=== PATIENT | female | born 1995 | race Caucasian/White ===

== ENCOUNTER 2020-05-04 12:58 | Emergency (ER) | payer MEDICAID, SELFPAY ==
[2020-05-04 13:30] VITALS: BP 148/99; PULSE 86; RESP 16; TEMP 36.4; O2SAT 97; BMI 22.8
--- NOTE | 2020-05-04 13:33 | ED_ITS ---
HPI - Head Injury General Chief complaint: Head Injury Stated complaint: head injury Time Seen by Provider: 05/04/20 13:33 Source: patient Mode of arrival: ambulatory Limitations: no limitations History of Present Illness HPI Narrative: States she fell several weeks ago at home trip and fall fell backwards hit her head and has had a tender area on the occipital area of her head since and this is making her very anxious and she is having headaches but has history of chronic migraines and for his related. States the fall occurred due to a slip and fall there was no prodromal symptoms. No syncope. No chest p ain or shortness of breath. No upper back /torso /neck pain. MD Complaint: head injury Onset (ago): day(s) Mechanism of Injury: fall Place: home Loss of Consciousness: no Location of injury: occipital Severity: mild Radiation: none Other Injuries: none Associated symptoms: denies other symptoms Related Data Allergies Allergy/AdvReac Type Severity Reaction Status Date / Time No Known Allergies Allergy Verified 05/04/20 13:33 Review of Systems Review of Systems: Constitutional: No Weight loss, No Fever, No Chills, No Night Sweats, No Fatigue, No Malaise ENT/Mouth: No Hearing loss, No Ear Pain, No Nasal Congestion, No Sinus Pain, No Hoarseness, No sore throat, No Rhinorrhea, No Swallowing Difficulty Eyes: No Eye Pain, No Swelling, No Redness, No Foreign Body, No Discharge, No Vision Changes Cardiovascular: No Chest Pain, No SOB, No Dyspnea on Exertion, No Orthopnea, No Edema, No Palpitations Respiratory: No Cough, No Sputum, No Wheezing, No Smoke Exposure, No Dyspnea Gastrointestinal: No Nausea, No Vomiting, No Diarrhea, No Constipation, No abdominal Pain, No Hematochezia, No Melena Genitourinary: no irregular bleeding, No Dysuria, No Urinary Frequency, No Hematuria, No Urinary Incontinence, No Urgency, No Flank Pain, No Urinary Flow Changes, No Hesitancy Musculoskeletal: No joint pain, No Myalgias, No Joint Swelling Skin: No Skin Lesions, No rash Neuro: No Weakness, No Numbness, No Paresthesias, No Loss of Consciousness, No Dizziness, No Headache Psych: No Anxiety/Panic, No Depression, No SI/HI/AH/VH, No Social Issues Heme/Lymph: No Bruising, No Bleeding,No Lymphadenopathy Endocrine: No Polyuria, No Polydipsia, No Temperature Intolerance Yes all other systems are reviewed and are negative [facility] Social History Social History (System 04/27/20 @ 12:22 by Samantha Elliott) Advance Directives: No Advance Directives Information Provided: No Physical Exam Vital Signs: Vital Signs: Vital Signs Temp Pulse Resp BP Pulse Ox 05/04/20 13:30 97.6 F 86 16 148/99 H 97 Body Mass Index 22.8 Reviewed MDM - Head Injury MDM Narrative Medical decision making narrative: AP consistent with contusion type injury to the scalp less likely skull fracture/intracranial process. [place] head CT score negative. Patient understands risk and benefits of having imaging. At this point I do not feel that she needs head CT given that the injury occurred almost 3 weeks ago and stable examination. She is requesting / demanding that she have a head CT. Risk and benefits of radiation understood. Head CT was subsequently done without acute pathology. 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 Overall nontoxic appearing. Stable for discharge. Differential Diagnosis Differential diagnosis: Likely concussion without loss of consciousness and closed head injury; Unlikely epidural hematoma, subarachnoid hematoma, postconcussion syndrome, subdural hematoma and concussion with loss of consciousness Medical Records Attestation: I reviewed the patient's medical records. Imaging Data CT scan - head: Attestation: I personally reviewed and interpreted this imaging study as follows: Radiologist's impression: [address] [address] [address] Scan Report Signed Patient: Colby Miranda#: [id number] : 1995Acct:[id number] Age/Sex: 24 / FADM Date: 05/04/20 Loc: HO.ED Attending Dr: Ordering Physician: Reg Macias NP Date of Service: 05/04/20 Procedure(s): CT head/brain wo con Accession Number(s): [id number] cc: Reg Macias NP~ EXAMINATION: CT HEAD WITHOUT CONTRAST CLINICAL INFORMATION: Status post fall COMPARISON: None TECHNIQUE: Contiguous axial imaging was performed from the skull base to vertex without intravenous administration of contrast. This CT examination was performed using dose optimization techniques as appropriate, variously including the following: *Automated exposure control *Adjustment of mA and/or kV according to patient size (this includes techniques or standardized protocols for targeted exams where dose is matched to indication/reason for exam; i.e. extremities or head) *Use of iterative reconstruction technique DLP: 558 mGy-cm FINDINGS: There is no evidence of acute intracranial hemorrhage or territorial infarction. No abnormal mass effect or midline shift is seen. [place] to white matter differentiation is well preserved. No extra-axial fluid collections are identified. The ventricles are normal in size. There is no abnormal attenuation within the brain parenchyma. The osseous structures and soft tissues are normal. There is mild right maxillary sinus mucoperiosteal thickening. Rest of the paranasal sinuses and mastoid air cells are well-aerated. CT/CT head/brain wo con IMPRESSION: No acute intracranial process seen. Dictated By:PABLITO WEBB MD Signed By:<Electronically signed by PABLITO WEBB MD in OV>05/04/20 1352 DD/ 1333 TD/TT: Identity Management [place] [facility] [place] Discharge Clinical Impression: Closed head injury Qualifiers: Encounter type: initial encounter Qualified Code(s): S09.90XA - Unspecified injury of head, initial encounter Contusion of scalp Qualifiers: Encounter type: initial encounter Qualified Code(s): S00.03XA - Contusion of scalp, initial encounter Patient Disposition: Home, Self-Care Instructions: Scalp Contusion in Adults (ED) Referrals: Physician,None [Primary Care Provider] - 1 week ( your primary care doctor) Interventions: ED Discharge Assessment Last Done: 05/04/20 14:04 Discharge Date/Time: 05/04/20 14:04
== END 2020-05-04 14:04 | disposition home or self-care (01) ==
PROVIDERS: Emergency Provider Emergency Medicine
DX: S09.90XA Unspecified injury of head, initial encounter (principal); S00.03XA Contusion of scalp, initial encounter; G44.309 Post-traumatic headache, unspecified, not intractable; W01.10XA Fall on same level from slipping, tripping and stumbling with subsequent striking against unspecified object, initial encounter; Y93.9 Activity, unspecified; Y92.009 Unspecified place in unspecified non-institutional (private) residence as the place of occurrence of the external cause
CPT/HCPCS: 70450; 99282; 99284

== ENCOUNTER 2022-02-16 21:22 | Emergency (ER) | payer OTHER, SELFPAY ==
[2022-02-16 21:27] VITALS: BP 141/96; PULSE 110; RESP 18; TEMP 37.1; O2SAT 97; BMI 21.9
[2022-02-16 22:07] VITALS: BP 143/99; PULSE 116; TEMP 36.6; O2SAT 98
--- NOTE | 2022-02-16 22:50 | ED.FEMALEGU ---
HPI - Female Genitourinary General Chief complaint: Vaginal Bleeding Stated complaint: ? miscarriage; vaginal bleeding Time Seen by Provider: 02/16/22 21:50 Source: patient and other ( significant other, Jose) Mode of arrival: ambulatory Limitations: no limitations History of Present Illness HPI Narrative: 26-year-old female who presents emergency department for evaluation of vaginal bleeding and possible . the patient has a Nexplanon implant for control. She states that her menstrual periods are sometimes irregular. She believes that her last menstrual period was 01/11/2022 and lasted approximately 2 weeks. She states that noted vaginal spotting approximately 5 days prior and she states that sometime she has small clots that look like tissue. She did a home test and was negative. She states that she feels as if she has a gas bubble and as if something is moving in her pelvic area and she is concerned that she is . She denies having abdominal pain, she states that she has mild periods with no pelvic pain. She is sexually active she has not noticed a vaginal discharge. Patient states that her vaginal area also appears abnormal to her, she states that it appears more red, she did not notice any vaginal lesions. Patient also states that over the past 2-3 days she has had a rash on her chest and abdomen as well as her back. She states that the rash is not painful but it is pruritic. She also complains swelling of her left middle finger around the nail. She has had this for approximately 4-5 days and she states that it is painful of specially if he pushes on the swollen part. MD elicited complaint: vaginal bleeding Onset (ago): day(s) (5) Location of symptoms: vaginal Consistency: other ( She describes the bleeding as spotting) Vaginal discharge: none Vaginal bleeding: scant Exacerbating factors: none Relieving factors: none Associated symptoms: rash Treatment prior to arrival: none Sexual activity: Yes Patient : No Possible : unsure if and at home test negative Date of Last Menstrual Period: 01/11/22 Related Data : 1 Para: 0 Previous Rx's Medication Instructions Recorded cephalexin 500 mg capsule 500 mg PO QID 5 days #20 caps 02/17/22 Allergies Allergy/AdvReac Type Severity Reaction Status Date / Time No Known Allergies Allergy Verified 05/04/20 13:33 Review of Systems Review of Systems: Yes all other systems are reviewed and are negative PMFSH Past Medical History [facility] Narrative: past medical history: None. Past surgical history: None. Social history: She smokes 1 pack of cigarettes per day times 10 years. She denies alcohol use. She denies drug use. : 1 Para: 0 Date of Last Menstrual Period: 01/11/22 Social History Social History Advance Directives: No Advance Directives Information Provided: No Patient : No Physical Exam Vital Signs: Vital Signs: Last Vital Signs Temp 97.8 F 02/16/22 22:07 Pulse 116 H 02/16/22 22:07 Resp 18 02/16/22 21:27 BP 143/99 H 02/16/22 22:07 Pulse Ox 98 02/16/22 22:07 O2 Del Method 02/16/22 22:07 BMI result Body Mass Index 21.9 Const: General: cooperative and no acute distress Orientation/consciousness: oriented to person and oriented to place Limitations: no limitations HEENT: Head: Yes normal to inspection, Yes normocephalic and Yes atraumatic Ears: external ears normal General nose exam: Normal external nose present Face and sinus: Yes normal facial exam Mouth: Normal oral and palatal mucosa present Throat: Yes posterior oropharynx normal Eyes: General: appearance normal, both eyes and all related structures Pupils: Equal, round and reactive pupils present Neck: Neck: Yes normal visual inspection, Yes no lymphadenopathy, Yes trachea midline and Yes supple Chest: Chest palpation & inspection: normal inspection of the chest and normal palpation of entire chest wall Resp: Effort & Inspection: normal respiratory effort and able to speak in complete sentences Auscultation: clear to auscultation bilaterally Cardio: Rate: regular rate Rhythm: regular rhythm Heart sounds: S1 normal heart sound present, S2 normal heart sound present and no murmurs GI: Inspection: Yes normal to inspection Palpation (GI): Soft to palpation, nontender and no guarding Auscultation: normal bowel sounds : General: Yes no CVA tenderness External Female Exam: normal external appearance Speculum Exam - Vagina: normal appearance of the vagina Back/Spine/Pelvis: Back: no CVA tenderness Skin: Other: Multiple small, vesicular and erythematous lesions noted on her chest and abdomen, there are few on her back as well, there are no lesions on her hands or feet Neuro: General: oriented to person and oriented to place Cranial nerves: Yes CN's II-XII intact bilaterally and Yes Equal, round and reactive pupils present Cognition (Neuro): normal cognition Motor exam (neuro): 5/5 motor strength present throughout Extrem: Other: patient has a small paronychial abscess to her left middle finger, this area is tender to palpation. Psych: Appearance: grossly normal Speech and movement: Normal speech and movement present Affect: normal affect Attitude: cooperative Thought process: Normal thought process present Thought content: Normal thought content present Course Course Course Narrative: 26-year-old female who presented to the emergency department for evaluation of vaginal bleeding x5 days with no abdominal pain, patient is concerned that she may be but had a negative home test. She was also concerned that her external vaginal area. Different and on my examination I do not see any lesions or any significant erythema on the external vaginal exam. The patient's last menstrual period was 01/11/2022 And she had vaginal bleeding for approximately 2 weeks suggesting that she would only be 5 weeks . Therefore I ordered a quantitative beta HCG, CBC and CMP. Will also obtain a urine sample on the patient. The patient has a rash which I believe is consistent with a viral infection. She also has a early left middle finger paronychial abscess. I did discuss incision and drainage as a possible treatment but the patient would rather try antibiotics and antibiotics and heat. 0009: The patient's quantitative beta hCG was below detectable limits, the rest for blood work was unremarkable. At this time, I think the patient's bleeding is secondary to her menses I did discuss this with her. The patient has a viral rash that does not need treatment. The patient will be started on Keflex 500 mg 3 times a day for 5 days for her paronychial abscess. She is advised to soak her finger for 15-20 minutes 4 to 6 times a day in warm to hot water. MDM - Female Genitourinary Lab Data Result diagrams: 02/16/22 23:11 02/16/22 23:11 Labs: Lab Results 02/16/22 02/16/22 02/16/22 Range/Units 23:11 23:11 23:11 WBC 11.7 H (4.8-10.8) X10*3/uL RBC 4.36 (4.20-5.50) X10*6/uL Hgb 12.5 (12.0-16.0) g/dl Hct 37.1 (37.0-47.0) % MCV 85.1 (80.0-98.0) fL MCH 28.7 (27.0-33.0) pg MCHC 33.7 (31.0-35.0) g/dl RDW 12.1 (11.0-16.0) % Plt Count 253 (160-400) X10*3/uL MPV 10.2 (9.4-12.3) fL Immature Gran % (Auto) 0.3 (0.0-0.4) % Neut % (Auto) 61.6 (45-73) % Lymph % (Auto) 21.6 (20-40) % [place] % (Auto) 13.4 H (2-11) % Eos % (Auto) 2.7 (0-4) % Baso % (Auto) 0.4 (0-2) % Lymph # (Auto) 2.5 (1.2-4.9) X10*3/uL [place] # (Auto) 1.6 H (0.1-1.2) X10*3/uL Eos # (Auto) 0.3 (0.0-0.4) X10*3/uL Baso # (Auto) 0.1 (0.0-0.2) X10*3/uL Abs Immat Gran (auto) 0.04 H (0.00-0.03) X10*3/uL Absolute Neuts (auto) 7.2 (2.0-8.3) x10*3/uL Absolute Nucleated RBC 0.000 (0.0-0.012) X10*3/uL Nucleated RBC % (auto) 0.0 (0.0-0.2) /100WBC Smear Tech's Comments VERIFIED Sodium 141 (135-145) mmol/L Potassium 3.6 (3.3-5.1) mmol/L Chloride 103 (96-108) mmol/L Carbon Dioxide 28 (22-29) mmol/L Anion Gap 14 (12-20) BUN 15 (9-16) mg/dL Creatinine 0.81 (0.5-1.4) mg/dL Estim Creat Clear Calc 83.2 Estimated GFR > 60 Random Glucose 68 (60-115) mg/dL Calcium 9.8 (8.4-10.2) mg/dL Total Bilirubin 0.7 (0.0-1.0) mg/dL AST 26 (5-31) U/L ALT 18 (0-31) U/L Alkaline Phosphatase 91 (39-117) U/L Total Protein 8.0 (6.5-8.0) g/dL Albumin 4.6 (3.5-5.0) g/dL Beta HCG, Quant < 2 mIU/mL Discharge Plan Discharge Clinical Impression: Vaginal bleeding, Acute paronychia of finger of left hand Patient Disposition: Home, Self-Care Instructions: Paronychia (ED) Additional Instructions: Your test was negative. Your blood work was otherwise unremarkable-you had a complete blood count and comprehensive metabolic panel. You have in his infection of your around the nail of your left middle finger. This is called a paronychial abscess. Soak your finger in warm water for 15 minutes 4 to 6 times a day for the next 2 days, this will cause the infection to improve or it may cause the infection to pop and drain. Take Keflex (cephalexin) 500 mg pills, 1 pill 3 times a day for 5 days. Take ibuprofen 200 mg pills, 3 pills every 6 hours as needed for pain. Take Tylenol (acetaminophen) 500 mg pills, 2 pills every 4 to 6 hours as needed for pain. Follow-up with your doctor in 2 days. Please return to the emergency department if your symptoms get worse or if you develop any symptoms that are concerning to you. Prescriptions: New cephalexin 500 mg capsule 500 mg PO QID 5 Days Qty: 20 0RF
[2022-02-16] MEDS: cephALEXin 500 MG CAPSULE PO (23:03)
[2022-02-16 23:17] LABS: Basophils Absolute Auto 0.1 X10*3/uL (0.0-0.2); Basophils Percent Auto 0.4 % (0-2); Eosinophils Absolute Auto 0.3 X10*3/uL (0.0-0.4); Eosinophils Percent Auto 2.7 % (0-4); Hematocrit 37.1 % (37.0-47.0); Hemoglobin 12.5 g/dl (12.0-16.0); Imm Gran Abs Auto 0.04 X10*3/uL (0.00-0.03); Imm Gran Pct Auto 0.3 % (0.0-0.4); Lymphocytes Absolute Auto 2.5 X10*3/uL (1.2-4.9); Lymphocytes Percent Auto 21.6 % (20-40); MANUAL DIFF FLAG SCAN; Mean Corpuscular HGB Conc 33.7 g/dl (31.0-35.0); Mean Corpuscular Hemoglobin 28.7 pg (27.0-33.0); Mean Corpuscular Volume 85.1 fL (80.0-98.0); Mean Platelet Volume 10.2 fL (9.4-12.3); Monocytes Absolute Auto 1.6 X10*3/uL (0.1-1.2); Monocytes Percent Auto 13.4 % (2-11); Neutrophils Absolute Auto 7.2 x10*3/uL (2.0-8.3); Neutrophils Percent Auto 61.6 % (45-73); Platelet Count 253 X10*3/uL (160-400); Red Blood Count 4.36 X10*6/uL (4.20-5.50); Red Cell Distribution Width 12.1 % (11.0-16.0); SCAN SMEAR FLAG 1; White Blood Count 11.7 X10*3/uL (4.8-10.8)
[2022-02-16 23:38] LABS: Alanine Aminotransferase 18 U/L (0-31); Albumin Level 4.6 g/dL (3.5-5.0); Alkaline Phosphatase 91 U/L (39-117); Anion Gap 14 (12-20); Aspartate Amino Transferase 26 U/L (5-31); Bilirubin Total 0.7 mg/dL (0.0-1.0); Blood Urea Nitrogen 15 mg/dL (9-16); Calcium 9.8 mg/dL (8.4-10.2); Carbon Dioxide 28 mmol/L (22-29); Chloride 103 mmol/L (96-108); Creatinine Clr Calc Pharmacy 83.2; Estimated Glomerular Filt Rate > 60; Glucose Random 68 mg/dL (60-115); Potassium 3.6 mmol/L (3.3-5.1); Sodium 141 mmol/L (135-145)
[2022-02-16 23:44] LABS: HCG Quantitative < 2 mIU/mL
[2022-02-16 23:50] LABS: SLIDE REVIEW VERIFIED
== END 2022-02-17 00:19 | disposition home or self-care (01) ==
PROVIDERS: Emergency Provider Emergency Medicine Emergency Medical Services
DX: N93.9 Abnormal uterine and vaginal bleeding, unspecified (principal); L03.012 Cellulitis of left finger; R21 Rash and other nonspecific skin eruption
CPT/HCPCS: 36415; 80053; 84702; 85025; 99283

== ENCOUNTER 2022-08-02 18:43 | Emergency (ER) | payer OTHER, SELFPAY ==
[2022-08-02 18:56] VITALS: BP 139/91; BP 150/00; PULSE 107; PULSE 124; RESP 18; TEMP 36.8; O2SAT 100; O2SAT 99; BMI 52.4
--- NOTE | 2022-08-02 19:00 | ED.OVERDOSE ---
HPI - Overdose General Chief Complaint: Overdose Stated Complaint: overdose Time Seen by Provider: 08/02/22 18:56 Source: patient Mode of arrival: EMS Limitations: no limitations History of Present Illness HPI Narrative: Patient comes to the emergency room via EMS after an accidental overdose. Patient states that she was snorting heroin, patient accidentally overdose, bystanders common 1, EMS gave her intranasal Narcan and responded well. Patient on arrival alert and oriented x3, no acute distress. Denies suicidal or homicidal ideation. Related Data Previous Rx's Medication Instructions Recorded cephalexin 500 mg capsule 500 mg PO QID 5 days #20 caps 02/17/22 Allergies Allergy/AdvReac Type Severity Reaction Status Date / Time No Known Allergies Allergy Verified 05/04/20 13:33 Review of Systems Review of Systems: Constitutional : No Weight loss, No Fever, No Chills, No Night Sweats, No Fatigue, No Malaise ENT/Mouth : No Hearing loss, No Ear Pain, No Nasal Congestion, No Sinus Pain, No Hoarseness, No sore throat, No Rhinorrhea, No Swallowing Difficulty Eyes: No Eye Pain, No Swelling, No Redness, No Foreign Body, No Discharge, No Vision Changes Cardiovascular : No Chest Pain, No SOB, No Dyspnea on Exertion, No Orthopnea, No Edema, No Palpitations Respiratory : No Cough, No Sputum, No Wheezing, No Smoke Exposure, No Dyspnea Gastrointestinal : No Nausea, No Vomiting, No Diarrhea, No Constipation, No abdominal Pain, No Hematochezia, No Melena Genitourinary : no irregular bleeding, No Dysuria, No Urinary Frequency, No Hematuria, No Urinary Incontinence, No Urgency, No Flank Pain, No Urinary Flow Changes, No Hesitancy Musculoskeletal : No joint pain, No Myalgias, No Joint Swelling Skin : No Skin Lesions, No rash Neuro : No Weakness, No Numbness, No Paresthesias, No Loss of Consciousness, No Dizziness, No Headache Psych : No Anxiety/Panic, No Depression, No SI/HI/AH/VH, accidental overdose Heme/Lymph: No Bruising, No Bleeding,No Lymphadenopathy Endocrine : No Polyuria, No Polydipsia, No Temperature Intolerance PMFSH Past Medical History Medical History (Updated 08/02/22 @ 19:09 by Kassandra Washington MD) Accidental overdose Social History Social History Alcohol intake: never Smoked in Last 30 Days: No Use of substances other than those prescribed or required for medical reasons: Yes Substance Use Type: Heroin Substance Use Frequency: Occasionally Advance Directives: No Advance Directives Information Provided: Yes Patient : No Physical Exam Vital Signs: Vital Signs: Last Vital Signs Temp 98.3 F 08/02/22 18:56 Pulse 107 H 08/02/22 18:56 Resp 16 08/02/22 19:50 BP 139/91 H 08/02/22 18:56 Pulse Ox 98 08/02/22 19:50 O2 Del Method 08/02/22 19:50 BMI result Body Mass Index 52.4 Const: Other: Appearance: Alert. Oriented X3. No acute distress. Eyes: Pupils equal, round and reactive to light. ENT: Pharynx normal. Neck: Normal inspection. Neck supple. No lymph nodes noted. No crepitus CVS: Normal heart rate and rhythm. Pulses normal. Normal S1 and S2 Respiratory: No respiratory distress. Breath sounds normal. No Wheezing. No rales Abdomen: Soft and nontender. No rigidity. No distention. Skin: Skin warm and dry. Normal skin color. Normal skin turgor. Extremities: No lower extremity edema. No Lacerations. No Rash Neuro: Oriented X 3. No motor deficit. No sensory deficit. Moving all extremities. No slurred speech. CN 2 through 12 grossly intact Psych: calm, cooperative, normal affect Course Course Course Narrative: Patient is awake, alert and oriented x4, no acute distress, oxygen saturation in the high 90s. -Patient will be observed for couple of hours, discharged if patient remains asymptomatic. -the power and recovery superintendent is at bedside with the patient -patient will be provided with home Narcan Medical Decision Making Medical Decision Making MDM Narrative: -patient is awake, alert and oriented x4 no acute distress, calm and cooperative -patient was given information by the power and recovery superintendent and home Narcan by us -patient ready for discharge Discharge Plan Discharge Clinical Impression: Accidental overdose Patient Disposition: Home, Self-Care Instructions: Adult Overdose (ED) Additional Instructions: Please follow-up with your primary care physician tomorrow. If you have any worsening or new symptoms, please return to the emergency room or call 911 Prescriptions: No Action cephalexin 500 mg capsule 500 mg PO QID 5 Days Qty: 20 0RF Interventions: Hawkins-Suicide Risk Severity Scale Last Done: 08/02/22 19:50
--- NOTE | 2022-08-02 19:32 | MHC.RECOVSUP ---
? Reason for consult:OPI o? Current location:ED22? o? Identified substance use concern:? -? Overdose -? Support ? Intervention: o? Community resources provided o? Harm reduction discussion ? Plan: o? Follow up tomorrow? ? Additional information:RC met with pt and discussed harm reduction, also RC provided the pt with recovery resources to [facility] and [facility] services. RC provided the pt with work business card with contact information.
[2022-08-02 19:50] VITALS: RESP 16; O2SAT 98
--- NOTE | 2022-08-02 19:53 | PC.NURSE ---
Has been sleeping w/ skin pwd and chest rise noted since triage. NAD.
--- NOTE | 2022-08-02 21:18 | PC.NURSE ---
Pt sleeping. Skin pWD. chest rise noted.
[2022-08-02 21:27] VITALS: BP 115/80; PULSE 95; RESP 17; TEMP 37; O2SAT 97
== END 2022-08-02 21:54 | disposition home or self-care (01) ==
PROVIDERS: Emergency Provider Emergency Medicine
DX: F11.90 Opioid use, unspecified, uncomplicated (principal); T40.1X1A Poisoning by heroin, accidental (unintentional), initial encounter; Y92.9 Unspecified place or not applicable
CPT/HCPCS: 99283; 99284

== ENCOUNTER 2024-08-17 22:37 | Emergency (ER) | payer MEDICAID, SELFPAY ==
--- NOTE | ~2024-08-17 | XR_ITS ---
CLINICAL HISTORY: pain post injury RIGHT WRIST X-RAYS COMPARISON: None. FINDINGS: A total of three views of the right wrist were obtained. Exam is mildly limited due to patient positioning. No definite acute fracture or dislocation within the right wrist. Joint spaces are maintained. IMPRESSION: 1. No acute disease. This document has been electronically signed by: Kamari Coronel M.D. on 08/17/2024 23:22:32
[2024-08-17 22:39] VITALS: BP 143/89; PULSE 99; RESP 14; TEMP 36.4; O2SAT 99; BMI 21.7
[2024-08-18 01:50] VITALS: BP 113/68; PULSE 80; RESP 18; TEMP 36.9; O2SAT 95
[2024-08-18 01:58] LABS: UPreg QC Valid YES; Urine Pregnancy NEGATIVE (NEGATIVE)
--- OUTSIDE RECORDS SUMMARY | 2024-08-18 02:07 | XMS_ITS | Encounter Summary ---
Author Organization [employer] Address [address] [facility] [address] [facility] [place] [address] Care Team Providers Care Nat Instructor Name Role Phone Unavailable Primary Care Provider Unavailabl e Reason for Visit * Reason Comments Pre-visit Planning SDOH negative, Tobac co screening negative. Encounter Details Date Type Department Care Team ([facility] Contact Info) Description 08/12/2024 Patient Outreach [facility] MED & PEDS [address] [place] [address] Frankie Guevara MD [address] [place] [address] Pre-visit Planning (SDOH negative, Tobacco screening negative. ) Social History Tobacco Use Types Packs/Day Years Used Date Smoking Tobacco: Every Day Cigarettes Passive Smoke Exposure: Current Smokeless Tobacco: Never Housing Stability Answer Date Recorded What is your housing situation today? I have melissa bhatt 08/12/[address] you li ve. Do you have problems with any of the following? None of the above 08/12/2024 Food Insecurity Answer Date Recorded Within the past 12 months, y ou worried that your food would run out before you got money to buy more: Never True 08/12/2024 Within the past 12 months,th e food you bought just didn't last and you didn't have enough money to get more: Never True Transportation Answer Date Recorded In the past 12 months, has l ack of transportation kept you from medical appts, meetings, work or from getting things needed for daily living? No 08/12/2024 Utilities Answer Date Recorded In the past 12 months, has t he electric, gas, oil or water company threatened to shut off services in your home? No 08/12/2024 Internet Access Answer Date Recorded Internet Access Q1 Yes 08/12/2024 Internet Access Q2 Not on file 08/12/2024 Comments Unknown Sex and Gender Information Value Date Recorded Sex Assigned at Female 10/06/2023 10:10 AM EDT Legal Sex Female 10:07 AM EDT Gender Identity Female 10/06/2023 10:10 AM EDT Sexual Orientation Straight 10/06/2023 10 :10 AM EDT documented as of this encounter Progress Notes * Allyn Escobeod - 08/12/2024 4:05 PM EST CC Allyn Lamas placed successful outbound call to patient for pre-visit planning. Patient name and confirmed. Patient confirms appt date and time, and has transportation arrangements. Biggest concern for appointment at this time is no concerns. Appropriate screenings completed in anticipation ofappointment. documented in this encounter Plan of Treatment Upcoming Encounters Date Type Department Care Team (Late st Contact Info) Description 08/19/2024 1:45 PM EST Office Visit [facility] MED & PEDS [address] [place] [address] Frankie Guevara MD [address] [place] [address] documented as of this encounter Visit Diagnoses Not on filedocumented in this encounter
--- OUTSIDE RECORDS SUMMARY | 2024-08-18 02:07 | XMS_ITS | Encounter Summary ---
Author Organization [employer] Address [address] [place] [address] Care Team Providers Care Friction Welding Machine Operator Name Role Phone Unavailable Primary Care Provider Unavailabl e Reason for Visit * Reason Onset Date Comments New patient 07/08/2024 Encounter Details Date Type Department Care Team (Late Contact Info) Description 07/08/2024 Telephone [facility] MEDICINE [address] [place] [address] Frankie Guevara MD [address] [place] [address] New patient Social History Tobacco Use Types Packs/Day Years Used Date Smoking Tobacco: Every Day Cigarettes Passive Smoke Exposure: Current Smokeless Tobacco: Never Comments Unknown Sex and Gender Information Value Date Recorded Sex Assigned at Female 10/06/2023 10:10 AM EDT Legal Sex Female 10:07 AM EDT Gender Identity Female 10/06/2023 10:10 AM EDT Sexual Orientation Straight 10/06/2023 10 :10 AM EDT documented as of this encounter Miscellaneous Notes * Telephone Encounter - Vandana Guerra - 07/08/2024 1:12 PM EST TC placed to patient for scheduling of new patient visit. Agreed to 08/19/24 with [facility] Conditions: Herniated disc muscle spasm Leg numbness Last seen 4 years ago Apptmnt reminder and release form sent via mail . documented in this encounter Plan of Treatment Upcoming Encounters Date Type Department Care Team (Late Contact Info) Description 08/19/2024 1:45 PM EST Office Visit [facility] [address] [place] [address] Frankie Guevara MD [address] [place] [address] documented as of this encounter Visit Diagnoses Not on filedocumented in this encounter
--- OUTSIDE RECORDS SUMMARY | 2024-08-18 02:07 | XMS_ITS | Clinical Summary ---
Author Organization [facility] Address [address] [place] [address] Care Team Providers Care Head Cleaning Porter Name Role Phone Franci Osman [facility] Primary Care Provider [phone] Source Comments PLEASE NOTE, if this patient is a minor, it may be UNLAWFUL to discuss sensitive information that is contained in these records (such as FAMILY PLANNING, MENTAL HEALTH or SUBSTANCE ABUSE) with the minor patient's parent or other person without the patient's specific authorization.[facility] Allergies No known active allergies Medications nicotine (NICODERM CQ) 21 mg/24 hr patchIndications: Cigarette nicotine dependence without complication Place 1 Patch onto the skin once daily (every 24 hours) 30 Patch 1 03/26/2022 Active Active Problems Problem Noted Date Diagnosed Date Cigarette nicotine dependence without complicati on 04/02/[address], left arm 03/26/2022 Opioid use disorder, moderat e, in sustained remission ([facility]) 03/26/2022 Family History Medical History Relation Name Comments No Known Problems Father Hypertension Mother Relation Name Status Comments Father Alive Mother Alive Social History Tobacco Use Types Packs/Day Years Used Date Smoking Tobacco: Every Day Cigarettes 1 5 Smokeless Tobacco: Never Tobacco Cessation:Ready to Q uit: Yes; Counseling Given: Yes Social Connections Answer Date Recorded Connectedness 0 03/26/2024 Financial Resource Strain Answer Date R ecorded Financial Resource Strain 0 2021 Stress Answer Date Recorded Stress 0 03/26/2022 Physical Activity Answer Date Recorded Physical Activity 0 03/26/2022 Food Insecurity Answer Date Recorded Food 0 04/08/2024 Transportation Needs Answer Date Record ed Transportation 0 03/26/2022 Housing Stability Answer Date Recorded Housing 0 03/26/2022 Safety and Environment Answer Date Doug rded Safety 0 03/26/2022 Utilities Answer Date Recorded Utilities 0 03/26/2022 Employment Answer Date Recorded Stress 0 03/26/2024 Comments No Sex and Gender Information Value Date Recorded Sex Assigned at Not on file Legal Sex Female 6:38 AM PDT Gender Identity Not on file Sexual Orientation Not on file Plan of Treatment Health Maintenance Due Date Last Done Comments HPV Screening 1995 Hepatitis C Screening 1995 Pap + HPV 1995 Tobacco Screening 1995 HIV Screening 10/25/2010 Relationship Safety Screening/Counseling 10/25/2010 Hypertension Screening (#1) 10/25/2013 Imm-Pneumococcal (1 of 2 - PCV) 10/25/2014 Cervical Cancer Screening 10/25/2016 Pap Smear 10/25/2016 Imm-DTaP/Tdap/Td (7 - Td or Tdap) 06/24/2017 06/24/2007, 12/31/1999, 02/10/1997, Additional history exists Tobacco Cessation Counseling (#1) 03/26/2023 [id number] () 03/14/2024 Imm-Influenza (#1) 2024 05/26/2014, 1 09/02/2011, 10/14/2011, Additional history exists Alcohol and Drug Screen 07/14/2024 Depression Annual Screen 07/14/2024 Imm-Hepatitis B Completed 03/13/1997, 06/13, 01/21/1996, Additional history exists Cervical Ablation/Cold-Knife Conization Discontinued Cervical Cryotherapy Discontinued Colposcopy Discontinued Endometrial Biopsy Discontinued Excision/Leep Discontinued HPV Genotyping Discontinued Vaginal Pap Discontinued Vulvoscopy Discontinued [facility] Care Teams Head Cleaning Porter Relationship Specialty Start Date End Date Franci Osman FNP [address] [place] [address] PCP - General Internal Medicine 01/08/22
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
[2024-08-18 04:46] VITALS: BP 111/70; PULSE 82; RESP 16; TEMP 36.4; O2SAT 95
== END 2024-08-18 04:51 | disposition home or self-care (01) ==
PROVIDERS: Emergency Provider Emergency Medicine
DX: M25.531 Pain in right wrist (principal); M54.2 Cervicalgia; R51.9 Headache, unspecified; M25.511 Pain in right shoulder
CPT/HCPCS: 73110; 81025; 99283; 99284

== ENCOUNTER → 2024-08-17 22:55 | Outpatient (BNV) | payer OTHER, SELFPAY | PROVIDERS: Visit Provider Radiology Diagnostic Radiology | DX: M25.531 Pain in right wrist (principal) | CPT/HCPCS: 73110 ==

== ENCOUNTER 2025-03-16 18:11 | Emergency (ER) | payer MEDICAID, SELFPAY ==
[2025-03-16 18:20] VITALS: BP 180/112; PULSE 112; O2SAT 98
[2025-03-16 18:21] VITALS: BMI 21.0
[2025-03-16 18:26] VITALS: BP 136/92; PULSE 107; RESP 18; TEMP 37; O2SAT 94
--- OUTSIDE RECORDS SUMMARY | 2025-03-16 18:33 | XMS_ITS | Clinical Summary ---
Author Organization [facility] Address [address] [place] [address] Care Team Providers Care Cnc Set Up Operator Name Role Phone Franci Osman [facility] Primary Care Provider [phone] Source Comments PLEASE NOTE, if this patient [...] use disorder, moderat e, in sustained remission ([facility]) 03/26/2022 Family History Medical History Relation Name [...] Health Maintenance Due Date Last Done Comments Anxiety Screening 1995 HPV Screening 1995 Hepatitis C Screening 1995 Pap + HPV 1995 Tobacco Screening 1995 HIV Screening 10/25/2010 Relationship Safety Screening/Counseling 10/25/2010 Hypertension Screening (#1) 10/25/2013 Imm-Pneumococcal (1 of 2 - PCV) 10/25/2014 Cervical Cancer Screening 10/25/2016 Pap Smear 10/25/2016 Imm-DTaP/Tdap/Td (7 - Td or Tdap) 06/24/2017 06/24/2007, 12/31/1999, 02/10/1997, Additional history exists Tobacco Cessation Counseling (#1) 03/26/2023 [id number] ( season) 2024 Alcohol and Drug Screen 07/14/2024 Depression Annual Screen 07/14/2024 Imm-Influenza (#1) 2025 05/26/2014, 1 09/02/2011, 10/14/2011, Additional history exists Imm-Hepatitis B Completed 03/13/1997, 06/13, 01/21/1996, Additional history exists Cervical Ablation/Cold-Knife Conization Discontinued Cervical Cryotherapy Discontinued Colposcopy Discontinued Endometrial Biopsy Discontinued Excision/Leep Discontinued HPV Genotyping Discontinued Vaginal Pap Discontinued Vulvoscopy Discontinued [facility] Care Teams Cnc Set Up Operator Relationship Specialty Start Date End Date Franci Osman FNP [address] [place] [id number] PCP - General Internal Medicine 01/08/22
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
--- NOTE | 2025-03-16 21:04 | PC.NURSE ---
Patient resting in hallway stretcher. Patient using hospital phone to talk to family members earlier stating no one is doing anything for her. While checking on her, patient has received gingerale and ice at bedside. Patient able to make needs known.
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
[2025-03-17 00:21] VITALS: BP 136/92; PULSE 107; RESP 18; TEMP 37; O2SAT 94
== END 2025-03-17 00:22 | disposition home or self-care (01) ==
PROVIDERS: Emergency Provider Emergency Medicine Emergency Medical Services
DX: T40.1X1A Poisoning by heroin, accidental (unintentional), initial encounter (principal); R40.4 Transient alteration of awareness; F10.10 Alcohol abuse, uncomplicated; Y92.488 Other paved roadways as the place of occurrence of the external cause
CPT/HCPCS: 99284

== ENCOUNTER 2025-05-26 13:18 | Emergency (ER) | payer MEDICAID, SELFPAY ==
--- NOTE | ~2025-05-26 | CT_ITS ---
EXAMINATION: CT HEAD WITHOUT CONTRAST CLINICAL INFORMATION: New onset seizure COMPARISON: CT head 05/04/2020 TECHNIQUE: Contiguous axial imaging was performed from the skull base to vertex without intravenous administration of contrast. This CT examination was performed using dose optimization techniques as appropriate, variously including the following: *Automated exposure control *Adjustment of mA and/or kV according to patient size (this includes techniques or standardized protocols for targeted exams where dose is matched to indication/reason for exam; i.e. extremities or head) *Use of iterative reconstruction technique FINDINGS: There is no evidence of acute intracranial hemorrhage or edematous large vessel territorial infarction. No abnormal mass effect or midline shift is seen. [place] to white matter differentiation is well preserved. No abnormal extra-axial fluid collections are identified. The ventricles are normal in size. No abnormal attenuation in the brain parenchyma. No acute calvarial fracture.. Paranasal sinuses and mastoid air cells are well-aerated. CT/CT head/brain wo IV con IMPRESSION: No CT evidence of acute intracranial hemorrhage or edematous territorial infarction.. Cause of the patient's symptoms has not been determined. Electronically signed by: Andres Crawford MD 05/26/2025 04:29 PM [facility]
[2025-05-26 13:27] VITALS: BP 142/97; BP 159/74; PULSE 112; PULSE 130; RESP 18; TEMP 36.4; O2SAT 98; O2SAT 99; BMI 23.6
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
--- NOTE | 2025-05-26 13:55 | ECG_ITS ---
Test Reason : seizure Blood Pressure : */* mmHG Vent. Rate : 99 BPM Atrial Rate : 99 BPM P-R Int : 120 ms QRS Dur : 88 ms QT Int : 366 ms P-R-T Axes : 59 32 36 degrees QTcB Int : 469 ms Normal sinus rhythm Nonspecific T wave abnormality Abnormal ECG No previous ECGs available Referred By: Peyton Green Electronically Signed By: KALA FARFAN MD
[2025-05-26 14:45] LABS: MANUAL DIFF FLAG NO
[2025-05-26 14:49] LABS: Hematocrit 43.7 % (37.0-47.0); Hemoglobin 14.6 g/dl (12.0-16.0); Imm Gran Abs Auto 0.03 X10*3/uL (0.00-0.03); Imm Gran Pct Auto 0.5 % (0.0-0.4); Lymphocytes Absolute Auto 1.0 X10*3/uL (1.2-4.9); Mean Corpuscular HGB Conc 33.4 g/dl (31.0-35.0); Mean Corpuscular Hemoglobin 29.5 pg (27.0-33.0); Mean Corpuscular Volume 88.3 fL (80.0-98.0); NRBC Abs Auto 0.000 X10*3/uL (0.0-0.012); NRBC Pct Auto 0.0 /100WBC (0.0-0.2); Platelet Count 335 X10*3/uL (160-400); Red Blood Count 4.95 X10*6/uL (4.20-5.50); White Blood Count 6.1 X10*3/uL (4.8-10.8)
[2025-05-26 15:10] LABS: Alanine Aminotransferase 18 U/L (0-31); Albumin Level 5.3 g/dL (3.5-5.0); Alkaline Phosphatase 86 U/L (39-117); Anion Gap 13 (12-20); Aspartate Amino Transferase 22 U/L (5-31); Blood Urea Nitrogen 9 mg/dL (9-16); Calcium 10.6 mg/dL (8.4-10.2); Carbon Dioxide 27 mmol/L (22-29); Chloride 105 mmol/L (96-108); Creatinine Clr Calc Pharmacy 87.5; Estimated Glomerular Filt Rate > 60; Magnesium 2.2 mg/dL (1.6-2.6); Potassium 3.5 mmol/L (3.3-5.1); Sodium 141 mmol/L (135-145); Total Protein 9.1 g/dL (6.5-8.0)
--- NOTE | 2025-05-26 15:31 | ED.SEIZURE ---
HPI - Seizure General Chief Complaint: Seizure Stated Complaint: WITNESSED SZ,POST ICTAL PERIOD,ALERT NOW PER MS Time Seen by Provider: 05/26/25 15:04 Source: patient, EMS, RN notes reviewed and old records reviewed Mode of arrival: EMS History of Present Illness ED Provider: Val Arthur PA-C HPI Narrative: 29-year-old female with a past medical history substance abuse presenting to the ED via EMS s/p witnessed seizure after using crack cocaine. Patient states she was in her car, pulled over and significant other witnessed seizure lasting a few minutes. Per EMS patient was postictal on their arrival. Patient states she has had 1 similar instance in the past - not currently on any antiepileptics. Denies head trauma, anticoagulation use, CP/SOB, recent illness, abdominal pain, nausea / vomiting. Seizure History: No Place: car Related Data Previous Rx's ?Medication ?Instructions ?Recorded cephalexin 500 mg capsule 500 mg PO QID 5 days #20 caps 02/17/22 Allergies Allergy/AdvReac Type Severity Reaction Status Date / Time No Known Allergies Allergy Verified 05/26/25 13:31 Review of Systems Review of Systems: Yes all other systems are reviewed and are negative Constitutional: Constitutional: Reports as per HPI Neurologic: Denies Abnormal speech present [facility] Past Medical History Attestation statement: The following information was validated with the patient. Source: old records reviewed Medical History Accidental overdose Social History Social History Alcohol intake: current Alcohol intake frequency: a few times a month Smoked in Last 30 Days: Yes Use of substances other than those prescribed or required for medical reasons: Yes Substance Use Type: Crack/Cocaine Advance Directives: No Advance Directives Information Provided: No Do you have a plan to hurt others: No Plan Physical Exam Vital Signs: Vital Signs: Last Vital Signs Temp 97.9 F 05/26/25 17:13 Pulse 93 05/26/25 17:13 Resp 18 05/26/25 17:13 BP 138/100 H 05/26/25 17:13 Pulse Ox 100 05/26/25 17:13 O2 Del Method Room Air 05/26/25 17:13 BMI result Body Mass Index 23.6 Const: Other: sleeping /lethargic, easily arousable General: cooperative and no acute distress Orientation/consciousness: patient oriented x3 HEENT: Head: Yes normal to inspection and Yes atraumatic Ears: hearing grossly normal bilaterally General nose exam: Normal external nose present Face and sinus: Yes normal facial exam Eyes: General: appearance normal, both eyes and all related structures Pupils: Equal, round and reactive pupils present and Dilated pupils bilaterally EOM: EOMs intact bilaterally Neck: Neck: Yes normal visual inspection and Yes no meningeal signs Resp: Effort & Inspection: normal respiratory effort and no respiratory distress Auscultation: clear to auscultation bilaterally Cardio: Rate: regular rate Heart sounds: S1 normal heart sound present and S2 normal heart sound present GI: Inspection: Yes normal to inspection Palpation (GI): Soft to palpation, nontender, no guarding and not rigid Back/Spine/Pelvis: Other: No midline cervical/thoracic/lumbar spinous tenderness/step-off or deformity Skin: Rashes: no rashes Wounds: no wounds Neuro: General: patient oriented x3, tone normal, moves all extremities, no meningeal signs, no focal motor deficits and CN's II-XI intact bilaterally Cranial nerves: Yes CN's II-XII intact bilaterally, Yes Equal, round and reactive pupils present and Yes Bilaterally intact EOM present Speech: No Abnormal speech present Motor exam (neuro): 5/5 motor strength present throughout and no tremor noted Extrem: General: Yes normal to inspection Course Course Course Narrative: - Labs reassuring. Ethanol negative. CT head/brain wo IV con IMPRESSION: No CT evidence of acute intracranial hemorrhage or edematous territorial infarction.. Cause of the patient's symptoms has not been determined. > 1638-- physician observation initiated as patient needs more time for clinical sobriety / to be back at baseline. 1740-- patient is awake and alert, has a safe ride home. Safe for discharge home at this time Results discussed with patient including worrisome signs and symptoms and strict return precautions, and when to return to the emergency department. They verbalized understanding and feel safe for discharge at this time. Medications Administered Discontinued Medications Generic Name Dose Route Start Last Admin Trade Name Freq PRN Reason Stop Dose Admin Sodium Chloride 1,000 mls @ 999 mls/hr 05/26/25 15:15 05/26/25 17:08 Ns IV 05/26/25 16:15 Infused .Q1H1M DEVIN Infusion Naloxone HCl 8 mg 05/26/25 15:36 05/26/25 17:39 Naloxone Hcl Nasal Take Home 4 Mg [place] NOSTRILALT 05/26/25 15:37 8 mg ONCE ONE Administration Medical Decision Making Medical Decision Making [facility] Narrative: 29-year-old female with a past medical history substance abuse presenting to the ED via EMS s/p witnessed seizure after using crack cocaine. on exam tachycardic, lethargic /sleeping, easily arousable, no evidence of trauma. No focal deficits. Concern for seizure secondary to substance abuse. Rule out metabolic infectious etiologies. Lower suspicion for mass, encephalitis/ meningitis Plan: EKG, labs, UA, tox screen but head CT, observe and re-evaluate for clinical sobriety. Please refer to course for remaining clinical decision making, interpretation of labs/imaging results, and discussions with consultants and/or family members. Differential Diagnosis Differential Diagnoses: The differential diagnosis associated with the presentation includes As above Admission/Observation Consideration of admission/observation: Escalation of care including admission/observation considered Lab Data [facility] Lab Attestation statement: I reviewed the patient's lab results. 05/26/25 14:41 05/26/25 14:41 Labs: Lab Results 05/26/25 05/26/25 Range/Units 14:41 16:15 WBC 6.1 (4.8-10.8) X10*3/uL RBC 4.95 (4.20-5.50) X10*6/uL Hgb 14.6 (12.0-16.0) g/dl Hct 43.7 (37.0-47.0) % MCV 88.3 (80.0-98.0) fL MCH 29.5 (27.0-33.0) pg MCHC 33.4 (31.0-35.0) g/dl RDW 12.6 (11.0-16.0) % Plt Count 335 D (160-400) X10*3/uL MPV 9.6 (9.4-12.3) fL Immature Gran % (Auto) 0.5 H (0.0-0.4) % Neut % (Auto) 70.0 (45-73) % Lymph % (Auto) 17.0 L (20-40) % [place] % (Auto) 9.6 (2-11) % Eos % (Auto) 2.1 (0-4) % Baso % (Auto) 0.8 (0-2) % Lymph # (Auto) 1.0 L (1.2-4.9) X10*3/uL [place] # (Auto) 0.6 (0.1-1.2) X10*3/uL Eos # (Auto) 0.1 (0.0-0.4) X10*3/uL Baso # (Auto) 0.1 (0.0-0.2) X10*3/uL Abs Immat Gran (auto) 0.03 (0.00-0.03) X10*3/uL Absolute Neuts (auto) 4.2 (2.0-8.3) x10*3/uL Absolute Nucleated RBC 0.000 (0.0-0.012) X10*3/uL Nucleated RBC % (auto) 0.0 (0.0-0.2) /100WBC Sodium 141 (135-145) mmol/L Potassium 3.5 (3.3-5.1) mmol/L Chloride 105 (96-108) mmol/L Carbon Dioxide 27 (22-29) mmol/L Anion Gap 13 (12-20) BUN 9 (9-16) mg/dL Creatinine 0.75 (0.5-1.4) mg/dL Estim Creat Clear Calc 87.5 Estimated GFR > 60 Random Glucose 98 (60-115) mg/dL Lactic Acid 0.9 (0.5-2.0) mmol/L Calcium 10.6 H D (8.4-10.2) mg/dL Magnesium 2.2 (1.6-2.6) mg/dL Total Bilirubin 0.6 (0.0-1.0) mg/dL Direct Bilirubin 0.2 (0.0-0.5) mg/dL AST 22 (5-31) U/L ALT 18 (0-31) U/L Alkaline Phosphatase 86 (39-117) U/L Total Creatine Kinase 83 (26-140) U/L Total Protein 9.1 H (6.5-8.0) g/dL Albumin 5.3 H (3.5-5.0) g/dL Beta HCG, Quant < 2 mIU/mL Ethyl Alcohol < 10 mg/dL Independent Interpretation I performed an independent interpretation of an: EKG ( My interpretation: EKG normal sinus rhythm rate of 99. IL interval 120. QTC 469. No STEMI.) Radiology Impression Discussion of test interpretation with radiology: I have reviewed the radiologist's reading. Independent Historian Clinical information obtained from an independent historian. History obtained from or confirmed by: EMS External Record Review External record reviewed: Inpatient record, Office record, Outpatient record, Prior outpatient labs, Prior outpatient radiology, Primary care record and Outside ED record Tests considered The following testing was considered but not selected: As above Prescription Management I considered prescription management with: Other Chronic Conditions Patient?s care impacted by: Other Social Determinants Patient?s care significantly limited by Social Determinants of Health including: Inadequate housing, Low income, Alcoholism and drug addiction in family, Problems related to primary support group and Other Social Determinant of Health Discharge Plan Discharge Clinical Impression: New onset seizure, Cocaine abuse Instructions: Cocaine Use Disorder (ED), New-Onset Seizure in Adults (ED) Additional Instructions: you had a seizure today likely from cocaine use. Please avoid this. Please do not drive if you have recurrent seizures, falls, any head strike, chest pain, headache, weakness return to the ED Please follow up with your primary care doctor as well as Neurology [facility] is a 24/ hotline where you can be on the phone with someone while you use, and they can call for help if they suspect an overdose: [phone] Things to look out for when you leave include severe vomiting or diarrhea, headaches, muscle cramps, fever, coughing, chest pain, or if you feel so short of breath you cannot walk to the bathroom. Please seek care and return any time for worsening symptoms.? You may have been provided with safer injection?items, please take time to take care of YOU and your health. Use new supplies whenever possible to lessen the chances of infections and other illnesses.? If you need more supplies, please go [facility] [address] [place], [place] you can call or text to coordinate delivery of safer supplies. If you decide you want to stop or cut down on how much you?re using, please call the numbers on the list provided to you or you can come to our outpatient Addiction Treatment office [facility] (M-F 9am-5p) [address], [address] [place]. [phone] Prescriptions: No Action cephalexin 500 mg capsule 500 mg PO QID 5 Days Qty: 20 0RF Referrals: Jess Zapata MD [Physician, Neurology] Physician,Unknown J [Primary Care Provider, Medical] - 2 days Print Language: Turkmen
[2025-05-26 17:13] VITALS: BP 138/100; PULSE 93; RESP 18; TEMP 36.6; O2SAT 100
--- NOTE | 2025-05-26 17:14 | PC.NURSE ---
pt has been sleeping in the ED no seizure activity while in ED, vs stable
--- OUTSIDE RECORDS SUMMARY | 2025-05-26 17:22 | XMS_ITS | Clinical Summary ---
Author Organization [employer] Address [address] [place] [address] Care Team Providers Care Fire Fighters Dispatcher Name Role Phone Frankie Guevara MD Primary [...] partner Current moderate episode of major depressive disorder (CMS/HCC) 08/24/2024 Assessment & Plan (08/24/2024 3:26 PM [...] Type Department Care Team Description 03/11/2025 Telephone [facility] [address] [place] [address] Frankie Guevara MD RV APPT from Last 3 Months Family History Medical History Relation Name Comments No Known Problems Brother No Known Problems Father Hypertension Mother No Known Problems Sister Relation Name Status Comments Brother Father Mother Sister Social History Tobacco Use Types Packs/Day Years Used Date Smoking Tobacco: Every Day Cigarettes 0.5 10.9 Started: 2014 Passive Smoke Exposure: Current Smokeless [...] 2 - PCV) 10/25/2014 Pap Smear 10/25/2016 Depression Monitoring 02/21/2025 08/24/2024 , 08/24/2024 COVID-19 Vaccine (1 - 2024-2 6 season) 2025 Influenza Vaccine (#1) 2025 Alcohol/Substance Use Screening [...] patient's age to complete this topic Insurance Contests4Causes C3 Care Teams Fire Fighters Dispatcher Relationship Specialty Start Date End Date Frankie Guevara MD [address] [place] [id number] PCP - General Internal Medicine 08/25/24
[2025-05-26] MEDS: Naloxone HCl Nasal TAKE HOME 4 MG SPRAY 8 MG NOSTRILALT (17:39)
[2025-05-26 17:50] VITALS: BP 138/100; PULSE 93; RESP 18; TEMP 36.6; O2SAT 100
== END 2025-05-26 18:02 | disposition home or self-care (01) ==
PROVIDERS: Emergency Medicine; Physician Assistant; Emergency Provider Emergency Medicine
DX: R56.9 Unspecified convulsions (principal); F14.90 Cocaine use, unspecified, uncomplicated; R94.31 Abnormal electrocardiogram [ECG] [EKG]; R00.0 Tachycardia, unspecified; R11.0 Nausea; Z51.81 Encounter for therapeutic drug level monitoring
CPT/HCPCS: 36415; 70450; 80048; 80076; 80307; 82550; 83605; 83735; 84702; 85025; 93005; 96360; 96361; 99285

== ENCOUNTER → 2025-05-26 13:55 | Outpatient (BNV) | payer MEDICAID, SELFPAY | PROVIDERS: Emergency Provider Emergency Medicine; Visit Provider Radiology Diagnostic Ultrasound | DX: R56.9 Unspecified convulsions (principal) | CPT/HCPCS: 70450 ==

== ENCOUNTER → 2025-05-26 13:55 | Outpatient (BNV) | payer MEDICAID, SELFPAY | PROVIDERS: Emergency Provider Emergency Medicine; Visit Provider Internal Medicine Cardiovascular Disease | DX: R94.31 Abnormal electrocardiogram [ECG] [EKG] (principal); R56.9 Unspecified convulsions | CPT/HCPCS: 93010 ==